=== PATIENT | male | born 1945 | race African-American/Black ===

== ENCOUNTER → 2016-11-29 | Outpatient (CLI) | payer OTHER ==
[~2016-11-29] MED LIST: ACCUNEB SO1.25 MG/1; AMBIEN 10 MG TA10 MG PO; APAP/CODEINE ELI5 M1 PO; CALCIUM 500 +1 EAC5 PO; CLINDAMYCIN 1%60 M1; CLOBETASOL PROP60 G3; COUMADIN 2 MG TA2 M1 PO; COUMADIN 5 MG TA5 M1 PO; FELDENE20 MG PO; JANUMET 50-1,01 EACH PO; JANUMET 50-5001 EACH PO; LISINOPRIL10 MG PO; LISINOPRIL20 MG PO; LOVENOX40 MG/0.4 SUBQ; MAGNESIUM CITR100 MG PO; NORCO 5-325 TA1 EACH PO; PERCOCET 10-321 EACH PO; [UNRECOGNIZED DRUG - REMARK]
== END ==
LOC: RAD 15:17 → ULTRA 15:17
DX: R92.8 Other abnormal and inconclusive findings on diagnostic imaging of breast (principal); N63 Unspecified lump in breast

== ENCOUNTER 2017-07-30 19:31 | Inpatient (IN) | payer OTHER ==
[~2017-07-30] VITALS: Ht 175.3 cm; Wt 114.1 kg
--- NOTE | ~2017-07-30 | EKG ---
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 : 1945 Requested By: Yue Vazquez Order Number: [id number] MD: Gilberto Russ Measurements Intervals [place] Rate: 71 P: 49 MN: 160 QRS: -34 QRSD: 111 T: -14 QT: 434 QTc: 472 Interpretive Statements Sinus rhythm Left axis deviation Abnormal R-wave progression, late transition Borderline T abnormalities Compared to ECG 02/16/2014 09:24:33 ST and T wave abnormality is less pronounced Electronically Signed On 07-31-2017 7:31:25 CDT by Gilberto Russ [email or web address] <ELECTRONICALLY SIGNED> By: Gilberto Russ MD, [facility] 07/31/17 0731 99 99 Gilberto Russ MD, [facility] /EPI
[2017-07-30 19:37] VITALS: BP 129/80
[2017-07-30] MEDS ORDERED: FLOMAX0.4 MG PO (20:51)
[2017-07-30] MEDS ORDERED: JANUMET XR 50-1 EAC1 PO (20:51)
[2017-07-30] MEDS ORDERED: NORVASC10 MG PO (20:51)
[2017-07-30] MEDS ORDERED: MOBIC15 MG PO (20:52)
[2017-07-30] MEDS ORDERED: ZOCOR20 MG PO (20:52)
[2017-07-30] MEDS ORDERED: HYZAAR 100-12.1 EACH PO (20:52)
[2017-07-30] MEDS ORDERED: FARXIGA10 MG PO (20:53)
[2017-07-30] MEDS ORDERED: FLONASE 0.05%50 MCG NASAL (20:53)
[2017-07-30] MEDS ORDERED: AMARYL4 MG PO (20:53)
[2017-07-30 21:16] LABS: ABSOLUTE NEUTROPHILS 3.8 thou/uL (1.4-8.2); EOSINOPHILS 2.1 % (0.0-3.0); HEMOGLOBIN 14.3 gm/dL (14.0-18.0); LYMPHOCYTES 25.7 % (24.0-44.0); MCH 27.8 pg (26.0-34.0); MCV 81.9 fL (80.0-100.0); PLATELET COUNT 236 thou/uL (150-400); POLYS 59.2 % (36.0-66.0); RBC 5.13 mil/uL (4.50-6.00); RDW 14.9 % (10.5-14.5); WBC 6.4 thou/uL (4.0-11.0)
[2017-07-30 21:20] LABS: ANION GAP 10 mmol/L (7-16); BUN 24 mg/dL (7-18); CALCIUM 8.3 mg/dL (8.5-10.1); CHLORIDE 104 mmol/L (98-107); CO2 28 mmol/L (21-32); CREATININE 1.6 mg/dL (0.7-1.3); GLUCOSE 235 mg/dL (74-106); POTASSIUM 3.5 mmol/L (3.5-5.1); SODIUM 142 mmol/L (136-145)
[2017-07-30 21:22] LABS: MANUAL DIFF NO
[2017-07-30 21:26] LABS: ALBUMIN 3.7 g/dL (3.4-5.0); ALKALINE PHOSPHATASE 73 U/L (46-116); DIRECT BILIRUBIN < 0.1 mg/dL (<0.1-0.3); SGOT 23 U/L (15-37); SGPT 27 U/L (30-65); TOTAL BILIRUBIN 0.4 mg/dL (<0.1-1.0); TOTAL PROTEIN 7.3 g/dL (6.4-8.2)
[2017-07-30 21:46] LABS: URINE BILIRUBIN NEGATIVE (Negative); URINE BLOOD NEGATIVE (Negative); URINE COLOR YELLOW; URINE GLUCOSE-RANDOM* 3+ (Negative); URINE KETONES NEGATIVE (Negative); URINE NITRITE NEGATIVE (Negative); URINE PROTEIN (DIPSTICK) NEGATIVE (Negative); URINE SPECIFIC GRAVITY <= 1.005 (1.003-1.035); URINE UROBILINOGEN 0.2 E.U./dl (0.2-1.0)
[2017-07-30 23:06] VITALS: BP 143/82
[2017-07-30] MEDS ORDERED: IBUPROFEN 600600 M1 PO (23:56)
[2017-07-30 23:58] VITALS: BP 136/89
[2017-07-31 04:04] VITALS: BP 135/84
[2017-07-31 07:55] VITALS: BP 139/81
[2017-07-31] MEDS ORDERED: SENOKOT-S TABL1 EACH PO (09:12)
[2017-07-31] MEDS ORDERED: TRAMADOL 50 MG50 MG PO (09:12)
[2017-07-31] MEDS ORDERED: CORTISPORIN OTI10 ML OTIC (09:25)
[2017-07-31 10:44] VITALS: BP 139/81
== END 2017-07-31 12:04 | disposition home or self-care (01) | DRG 391 ==
LOC: ER 19:31 → 2N 22:34 → EROBS 22:34 → 2N 23:30
PROVIDERS: Emergency Medicine
DX: K59.00 Constipation, unspecified (principal); N17.0 Acute kidney failure with tubular necrosis; M19.90 Unspecified osteoarthritis, unspecified site; I10 Essential (primary) hypertension; E11.9 Type 2 diabetes mellitus without complications; Z96.651 Presence of right artificial knee joint; E66.9 Obesity, unspecified; Z79.84 Long term (current) use of oral hypoglycemic drugs; Z79.899 Other long term (current) drug therapy; Z68.37 Body mass index [BMI] 37.0-37.9, adult; Z83.3 Family history of diabetes mellitus
CPT/HCPCS: 10797

== ENCOUNTER → 2017-10-04 | Outpatient (CLI) | payer OTHER ==
[~2017-10-04] MED LIST changes: +AMARYL4 MG PO; +CORTISPORIN OTI10 ML OTIC; +FARXIGA10 MG PO; +FLOMAX0.4 MG PO; +FLONASE 0.05%50 MCG NASAL; +HYZAAR 100-12.1 EACH PO; +IBUPROFEN 600600 M1 PO; +JANUMET XR 50-1 EAC1 PO; +MOBIC15 MG PO; +NORVASC10 MG PO; +SENOKOT-S TABL1 EACH PO; +TRAMADOL 50 MG50 MG PO; +ZOCOR20 MG PO
== END ==
LOC: ULTRA 09:55
DX: K76.0 Fatty (change of) liver, not elsewhere classified (principal); E27.8 Other specified disorders of adrenal gland

== ENCOUNTER 2017-12-12 11:17 | Emergency (ER) | payer OTHER ==
[~2017-12-12] VITALS: Ht 180.3 cm; Wt 90.7 kg
[2017-12-12 11:20] VITALS: BP 170/95
[2017-12-12] MEDS ORDERED: ULTRAM 50MG TAB50 MG PO (11:56)
== END 2017-12-12 12:21 | disposition home or self-care (01) ==
LOC: ER 11:17
DX: S80.02XA Contusion of left knee, initial encounter (principal); I10 Essential (primary) hypertension; E11.9 Type 2 diabetes mellitus without complications; W01.0XXA Fall on same level from slipping, tripping and stumbling without subsequent striking against object, initial encounter; Y93.89 Activity, other specified; Y92.89 Other specified places as the place of occurrence of the external cause; Y99.8 Other external cause status

== ENCOUNTER 2017-12-29 17:30 | Emergency (ER) | payer OTHER ==
[~2017-12-29] VITALS: Ht 180.3 cm; Wt 104.3 kg
[~2017-12-29 17:30] MED LIST changes: +ULTRAM 50MG TAB50 MG PO
[2017-12-29 18:47] VITALS: BP 160/98
== END 2017-12-29 18:49 | disposition home or self-care (01) ==
LOC: ER 17:30
DX: H93.8X2 Other specified disorders of left ear (principal); I10 Essential (primary) hypertension; E11.9 Type 2 diabetes mellitus without complications

== ENCOUNTER → 2019-01-09 | Outpatient (CLI) | payer OTHER | LOC: CAT 08:06 | DX: K80.20 Calculus of gallbladder without cholecystitis without obstruction (principal); D35.00 Benign neoplasm of unspecified adrenal gland ==